=== PATIENT | female | born 1955 | race Caucasian/White ===

== ENCOUNTER → 2024-06-10 | Outpatient (CLI) | payer MEDICARE, BC, SELFPAY ==
--- NOTE | 2024-06-10 10:00 | XR_ITS ---
Examination: CT abdomen without intravenous contrast. Coronal 2-D reconstructions. Sagittal 2-D reconstructions. Date and time of exam:June 10, 2024 1005 hours INDICATIONS: Right-sided abdominal pain beginning several months ago CTDI: vol (mGy): 8.99 DLP: (mGycm): 263 Technique: Axial images of the abdomen have been obtained, 3 mm slice thickness, abdomen without intravenous contrast 2-D sagittal coronal reconstructions Low dose protocols were performed. One or more of the following dose reduction techniques were used; automated exposure control, adjustment of the mA and/or KV according to patient size, use of iterative reconstruction technique. Findings: No focal liver or splenic lesions No gallstones No pancreatic mass Parapelvic renal cysts No renal or ureteral calculi, no hydronephrosis No bowel obstruction 25 mm fat-containing umbilical hernia No visualized diverticulitis IMPRESSION: No focal liver or splenic lesions No gallstones Given the patient's presentation, consider hepatobiliary sonography follow-up 25 mm fat-containing umbilical hernia
== END | disposition home or self-care (01) ==
LOC: CCTX 09:52
PROVIDERS: PCP Family Medicine; Referring Provider Internal Medicine; Visit Provider Internal Medicine
DX: K42.9 Umbilical hernia without obstruction or gangrene (principal)
CPT/HCPCS: 74150

== ENCOUNTER → 2024-07-08 | Outpatient (CLI) | payer MEDICARE, BC, SELFPAY ==
--- NOTE | 2024-07-08 15:30 | XR_ITS ---
Examination: Abdomen sonogram, Limited Date and time of exam: July 08, 2024 1524 hours INDICATIONS: Right upper abdominal pain beginning one year ago Technique: Real-time earl scale transabdominal sonographic images of the upper abdomen obtained. Findings: Multiple gallstones Gallbladder wall 0.3 cm no edema Common bile duct 0.3 cm Pancreas obscured by bowel gas Liver 17.7 cm mild hepatomegaly fatty infiltration Normal hepatopedal portal venous flow Patent IVC IMPRESSION: Cholelithiasis, negative for cholecystitis Normal common bile duct Mild hepatomegaly fatty liver
== END | disposition home or self-care (01) ==
PROVIDERS: PCP Family Medicine; Referring Provider Specialist; Visit Provider Specialist
DX: K80.20 Calculus of gallbladder without cholecystitis without obstruction (principal); K76.0 Fatty (change of) liver, not elsewhere classified
CPT/HCPCS: 76705

== ENCOUNTER 2024-08-01 09:34 | Outpatient (RCR) | payer MEDICARE, BC, SELFPAY ==
--- NOTE | 2024-08-01 10:00 | XR_ITS ---
Examination: NOHEMI, hepatobiliary radioisotope scan Gallbladder ejection fraction study. Date and time of exam: August 01, 2024 0942 hrs. Indications: Upper abdominal pain beginning 2 weeks ago Technique: 5.7 mCi of 99M Hepatolite administered. Serial imaging then obtained from immediate through 60 minutes. 1.5 mcg selective catheter Kinevac administered for gallbladder ejection fraction study. Findings: Radioisotope activity within the liver is reasonably homogenous. Gallbladder, common bile duct small bowel activity noted Impression: Gallbladder activity, abnormal gallbladder ejection fraction 60%
== END 2024-08-06 23:59 | disposition home or self-care (01) ==
LOC: SNUC 09:34
PROVIDERS: PCP Family Medicine; Referring Provider Specialist; Visit Provider Specialist
DX: R93.2 Abnormal findings on diagnostic imaging of liver and biliary tract (principal)
CPT/HCPCS: 78227; A9537; J2805

== ENCOUNTER 2024-11-29 06:20 | Day surgery (SDC) | payer MEDICARE, BC, SELFPAY ==
--- NOTE | 2024-11-28 07:00 | EKG_ITS ---
[facility] Test Date: 2024-11-28 Pat Name: ERICKA GONZALES Department: Room: - Gender: Female Canine Deputy: RADHA : 1955 Requested By: Linus Hatfield Order Number: [id number] Reading MD: Linus Hatfield Measurements Intervals [place] Rate: 56 P: 31 OH: 175 QRS: 19 QRSD: 98 T: 56 QT: 403 QTc: 390 Interpretive Statements SINUS BRADYCARDIA Compared to ECG 08/13/2022 08:59:51 Sinus rhythm no longer present /store/S0/[id number]
[2024-11-28 07:31] VITALS: BMI 26.2
[2024-11-28 09:08] LABS: Basophils # (Auto) 0.1 Thou/mm3 (0.0-0.2); Basophils % (Auto) 1 % (0-2.5); Eosinophils # (Auto) 0.1 Thou/mm3 (0.0-0.5); Eosinophils % (Auto) 2 % (0-10); Hematocrit 40.7 % (36.0-46.0); Hemoglobin 13.8 g/dL (12.0-16.0); Immature Granulocytes Auto 0.02 Thou/mm3 (0.00-0.00); Lymphocytes # (Auto) 1.9 Thou/mm3 (1.0-4.8); Lymphocytes % (Auto) 29 % (10-50); Mean Corpuscular HGB Conc 33.9 g/dl (31.0-37.0); Mean Corpuscular Hemoglobin 30.2 pg (25.0-35.0); Mean Corpuscular Volume 89 fL (80-100); Monocytes # (Auto) 0.5 Thou/mm3 (0.0-0.8); Monocytes % (Auto) 8 % (0-12); Neutrophils # (Auto) 3.9 Thou/mm3 (1.8-7.7); Neutrophils % (Auto) 60 % (37-80); Nucleated Red Blood Cell # 0.00 Thou/mm3 (0.00-0.00); Nucleated Red Blood Cell % 0 /100 WBC (0); Platelet Count 194 Thou/mm3 (140-440); RDW Standard Deviation 41.8 fL (36.4-46.3); Red Blood Count 4.57 Miln/mm3 (4.00-5.20); White Blood Count 6.6 Thou/mm3 (3.6-11.0)
[2024-11-28 09:16] LABS: Alanine Aminotransferase 25 U/L (10-49); Albumin, Serum 4.5 gm/dL (3.4-4.8); Albumin/Globulin Ratio 1.7 (1.2-2.2); Alkaline Phosphatase 114 U/L (46-116); Anion Gap 8 (7-16); Aspartate Amino Transferase 30 U/L (0-34); BUN/Creatinine Ratio 20 Ratio (12-20); Bilirubin,Total 0.5 mg/dL (0.3-1.2); Blood Urea Nitrogen 14 mg/dL (9-23); Calcium 10.4 mg/dL (8.3-10.6); Calcium (Corrected) 10.4 mg/dL (8.5-10.1); Carbon Dioxide 29.9 mMol/L (20.0-31.0); Chloride 107 mMol/L (98-107); Creatinine (Component) 0.7 mg/dL (0.6-1.3); Estimated Creatinine Clearance 70.5 mL/min (>60); Globulin 2.6 gm/dL (2.3-3.5); Glucose 108 mg/dL (74-106); Osmolality,Calculated 290 (275-295); Potassium 4.4 mMol/L (3.4-5.1); Sodium 145 mMol/L (136-145); Total Protein 7.1 gm/dL (5.7-8.2); eGFR > 60 See Note
[2024-11-29] VITALS (7 sets, daily range): BP systolic 151–170; BP diastolic 67–79; PULSE 62–95; RESP 12–20; TEMP 36.3–37.1; O2SAT 96–99; BMI 26.7
[2024-11-29] MEDS: RINGERS LACTATED 1000 ML 1,000 ML 20 ML IV (06:50)
--- NOTE | 2024-11-29 09:33 | PD.SUROPNT ---
Date of Procedure 11/29/24 Pre Op Diagnosis Symptomatic cholelithiasis Post Op Diagnosis Cholelithiasis with cholecystitis Procedure Laparoscopic cholecystectomy Findings Moderately distended gallbladder with gallstones and chronic cholecystitis. Anterior surface of the liver was smooth without nodules or any lesions Procedure Description Patient was brought into the operating room in supine position. After administration of general endotracheal anesthesia abdomen was prepped and draped in standard surgical manner. A Veress needle was inserted through the umbilicus and pneumoperitoneum was obtained up to 15 mmHg. The Veress needle was then removed, a 5 mm infraumbilical incision was made and the 5mm trocar was inserted. Laparoscopic camera was placed. Under direct visualization a laparoscopic camera a 10 mm trocar was placed in subxiphoid and two 5 mm trocars placed in right upper quadrant. The anterior surface of the liver was smooth without nodules or any lesions. The gallbladder was identified and was noted to be moderately distended. It was retracted cephalad and laterally. Dissection started near the infundibulum of gallbladder where cystic duct and gallbladder junction clearly identified. The cystic duct was circumferentially dissected off the peritoneum and surrounding inflammatory tissue. The critical view of safety was clearly demonstrated. Cystic duct was then divided between 2 endoclips proximally and one distally. The cystic artery was similarly dissected and divided. The gallbladder was then from the liver bed using electrocautery. The gallbladder was then placed inside an Endo Catch and removed from the abdomen utilizing subxiphoid trocar site. The area was copiously and thoroughly washed and irrigated, all the fluid was suctioned and the suction fluid returned clear. Hemostasis achieved using electrocautery. Endoclips noted be in place and intact without any bleeding or any leakage. Hemostasis was adequate and satisfactory. The subxiphoid trocar sites fascial defect was closed with 0 Vicryl using Endo Closure device. Instruments and trocars removed, pneumoperitoneum was evacuated and the incisions closed with 4-0 Monocryl in subcuticular fashion. Instrument needle and sponge counts were all reported to be correct X2. Patient tolerated the procedure well, was extubated, breathing spontaneously and without difficulty and was transferred to postanesthesia care in stable condition. Anesthesia GETA and local Pathology / specimen Other (Gallbladder and contents) Estimated Blood Loss 10 Condition Stable Disposition PACU Surgeon Linus Hatfield MD Surgical Staff Operation Date: 07/08/25 08:45 Case Staff Anesthesiologist: Mele Martines career technical supervisor: Kate Donahue
--- NOTE | 2024-11-29 09:38 | SUR.PHASEI ---
0938: Pt. AAOx4, vitals stable, breathing unlabored, no complaint of pain or nausea, x4 dermabond sites to ABD CDI, no active bleed noted, report received from Andrea CHICAS and MD Martines.
[2024-11-29] MEDS: ONDANSETRON INJ 2 MG/ML INJ 2 ML 4 MG IVP (09:58)
[2024-11-29] MEDS: METOCLOPRAMIDE INJ 5 MG/ML VIAL 2 ML 10 MG IVP (10:30)
--- NOTE | 2024-11-29 10:45 | SUR.PHASEII ---
1045: Pt. AAOx4, vitals stable, breathing unlabored, no complaint of pain or nausea, x4 dermabond sites to ABD CDI, no active bleed noted. Pt. tolerated sips of water well, pt. ambulated to wheelchair with steady gait and no assist, no complications. Gave discharge instructions to the pt. and her ride, both verbalized understanding and had no further questions. Pt. left with all personal belongings.
== END 2024-11-29 10:45 | disposition home or self-care (01) ==
PROVIDERS: PCP Family Medicine; Referring Provider Surgery; Visit Provider Surgery
PROC: 0FT44ZZ Resection of Gallbladder, Percutaneous Endoscopic Approach (ICD-10-PCS; CPT 47562; principal; 2024-11-29 08:30)
DX: K80.10 Calculus of gallbladder with chronic cholecystitis without obstruction (principal); Z01.810 Encounter for preprocedural cardiovascular examination
CPT/HCPCS: 47562; 36415; 80053; 85025; 93005; A4217; A4649; J0131; J0694; J1100; J2371; J2405; J2704; J2765; J3010; J3490; J7120; J1805

== ENCOUNTER 2024-12-03 13:59 | Emergency (ER) | payer MEDICARE, BC, SELFPAY ==
[2024-12-03 14:12] VITALS: BP 142/84; PULSE 110; RESP 18; TEMP 37.5; O2SAT 96; BMI 25.9
--- NOTE | 2024-12-03 14:18 | XR_ITS ---
Examination: PA lateral chest 2 views Technique: Upright PA lateral chest 2 views Date and time: December 03, 20242024 hrs. Comparison 02/08/2024 Indications: Fever beginning last week. Findings: Mild pneumonia left base obscuring detail left hemidiaphragm Right lung clear Normal heart size Prominent osteopenia Impression: Mild pneumonia left base
--- NOTE | 2024-12-03 14:18 | PD.EDRME ---
Rapid Medical Screening Exam RME Arrival date/time: 12/03/24 13:59 69-year-old female presents to the emergency department today stating that she had cholecystectomy on Thursday patient reports fever and generalized fatigue Chief Complaint: Fever Time Seen by Provider: 12/03/24 14:15 Vital signs: Vital Signs Temperature 99 F 12/03/24 14:12 Pulse Rate 110 H 12/03/24 14:12 Respiratory Rate 18 12/03/24 14:12 Blood Pressure 142/84 H 12/03/24 14:12 Pulse Oximetry (%) 96 12/03/24 14:12 Oxygen Delivery Method Room Air 12/03/24 14:12
--- NOTE | 2024-12-03 14:35 | EKG_ITS ---
[facility] Test Date: 2024-12-03 Pat Name: ERICKA GONZALES Department: Room: - Gender: Female Podiatric Assistant: : 1955 Requested By: Johny Nichols Order Number: [id number] Reading MD: Johny Nichols Measurements Intervals [place] Rate: 93 P: 34 PA: 167 QRS: 4 QRSD: 98 T: 45 QT: 334 QTc: 415 Interpretive Statements SINUS RHYTHM INFERIOR MYOCARDIAL INFARCTION , PROBABLY OLD [40+ ms Q WAVE AND/OR ST/T ABNORMALITY IN II/aVF] PROBABLE ANTEROLATERAL MYOCARDIAL INFARCTION , PROBABLY OLD [35 ms Q WAVE IN I/aVL/V3-V6] Compared to ECG 11/28/2024 08:20:29 Myocardial infarct finding now present Sinus bradycardia no longer present /store/S0/[id number]/[id number]
--- NOTE | 2024-12-03 14:44 | PD.EDRECHK ---
ED Recheck Abnl Lab Rx-RME/HPI General Chief Complaint: Fever Stated Complaint: FEVER / CHILLS POST DYLLAN X Time Seen by Provider: 12/03/24 14:15 Arrival date/time: 12/03/24 13:59 Limitations: no limitations RME / HPI RME / HPI narrative: 12/03/24 13:59 69-year-old female presents to the emergency department today stating that she had cholecystectomy on Thursday patient reports fever and generalized fatigue DR. GUILLERMO MAIN ED EVALUATION: 69 year old female accompanied by his daughter with past medical history significant for recent cholecystectomy by Dr. Hatfield presents to the Emergency Department with complaints of low grade fever of 99 F, chills, and generalized weakness. She also reports a small erythema area under the right breast. Denies any cholecystectomy complications. No other symptoms reported at this time. Related Data Home Medications ?Medication ?Instructions ?Recorded ?Confirmed hydrochlorothiazide 25 mg tablet 25 mg PO QDAY 07/02/23 11/28/24 losartan 50 mg tablet 50 mg PO QDAY 07/02/23 11/28/24 metoprolol succinate 25 mg 25 mg PO QDAY 07/02/23 11/28/24 tablet,extended release 24 hr calcium citrate 250 mg PO QDAY 11/28/24 11/28/24 multivitamin-ferrous 1 tab PO QAM 11/28/24 11/28/24 fumarate-folic acid 18 mg-400 mcg tablet (Centrum Women) Previous Rx's ?Medication ?Instructions ?Recorded docusate sodium 100 mg capsule 100 mg PO BID #30 caps 11/29/24 (Colace) hydrocodone 5 mg-acetaminophen 325 1 tab PO Q6H PRN pain (scale score 11/29/24 mg tablet 7-10) #10 tabs ibuprofen 600 mg tablet 600 mg PO Q8H PRN pain (scale 11/29/24 score 4-6) #15 tabs Allergies Allergy/AdvReac Type Severity Reaction Status Date / Time Penicillins Allergy Unknown rash Verified 12/03/24 14:03 Review of Systems Review of Systems Systems Reviewed: All systems reviewed, normal except as documented Past Medical History Past Medical History CARDIAC: Positive Cardiac Disorders, Hypertension and Varicose Veins RESPIRATORY: Positive Bronchitis GASTROINTESTINAL: Positive Gastrointestinal Disorders and Gall Bladder Disease REPRODUCTIVE: Positive Previous Pregnancies (2) MUSCULOSKELETAL: Positive Musculoskeletal Disorders and Fractures (left great toe fx) OTHER HISTORY: Positive Hospitalization (surgery, Hiatal hernia), Chicken Pox and Mumps Family History FAMILY HISTORY: Positive Family Cardiac Disorders and Family Surgery Social History SMOKING STATUS: Never smoker SUBSTANCE USE: does not use ALCOHOL: Never ED Exam General Limitations: Present no limitations General appearance: Present alert and in no apparent distress Head Head exam: Present atraumatic, normocephalic and normal inspection Eye Eye exam: Present normal appearance, PERRL and EOMI ENT ENT exam: Present normal exam, normal oropharynx and mucous membranes moist Neck Neck exam: Present normal inspection, full ROM and trachea midline Chest Chest inspection: Present normal inspection and symmetric chest wall rise Respiratory Respiratory exam: Present normal lung sounds bilaterally Cardiovascular Cardiovascular exam: Present regular rate, normal rhythm and normal heart sounds Abdominal Exam Abdominal exam: Present soft, normal bowel sounds and scar (surgical scar from recent cholecystectomy, glue still in place and no signs of infection); Absent tenderness Extremities Exam Extremities exam: Present normal inspection and full ROM Back Exam Back exam: Present normal inspection and full ROM Neurological Exam Neurological exam: Present alert, oriented X3 and CN II-XII intact Psychiatric Psychiatric exam: Present normal affect and normal mood Skin Skin exam: Present warm, dry, intact and erythema (2x6 cm area of erythema that is slightly raised but no fluid palpated.) Course Quality Measures none Orders Category Date Time Status Bedside COVID-19 Antigen Test NOW Care 12/03/24 14:18 Active Bedside Influenza A&B Antigen Test NOW Care 12/03/24 14:18 Completed Quality Improvement Coordinator NOW Care 12/03/24 14:35 Active Continuous Pulse Oximetry NOW Care 12/03/24 14:35 Completed EKG (ED ONLY) *Do not use* NOW Care 12/03/24 14:35 Completed Insert IV NOW Care 12/03/24 14:35 Active EKG (ED Only) Stat Exams 12/03/24 14:35 Draft US gall bladder Stat Exams 12/03/24 14:59 Completed XR chest 2V Stat Exams 12/03/24 14:18 Completed Blood Culture (Lab) Stat Lab 12/03/24 14:59 Received CBC Stat Lab 12/03/24 14:55 Completed Comprehensive Metabolic Panel Stat Lab 12/03/24 14:55 Completed Lactate (Lactic Acid) Stat Lab 12/03/24 14:55 Completed Lipase Stat Lab 12/03/24 14:55 Completed Procalcitonin Stat Lab 12/03/24 14:55 Completed UA, C/S IF [Urinalysis, C/S if Indicated] Stat Lab 12/03/24 14:18 Ordered Acetaminophen Ivpb [Ofirmev Inj] Med 12/03/24 14:59 Discontinued 1,000 mg in 100 ml IV X1 Levofloxacin/D5w 500 mg Ivpb [Levaquin Ivpb] Med 12/03/24 15:40 Discontinued 500 mg in 100 ml IV X1 Sodium Chloride 0.9% 1000 ml [Ns] 1,000 ml Med 12/03/24 14:35 Discontinued IV 999 mls/hr Triamcinolone Acet Cr 0.025% [Kenalog Cr 0.025%] Med 12/03/24 16:45 Discontinued See Dose Instructions TOP X1 ONE Vital Signs Vital signs: Vital Signs Temperature 99.5 F 12/03/24 14:12 Pulse Rate 110 H 12/03/24 14:12 Respiratory Rate 18 12/03/24 14:12 Blood Pressure 142/84 H 12/03/24 14:12 Pulse Oximetry (%) 96 12/03/24 14:12 Oxygen Delivery Method Room Air 12/03/24 14:12 Recheck / Abnormal Lab / Rx MDM Narrative MDM Narrative:: I, Mery Montano, am scribing for and in the presence of Dr. Guillermo. WBC is normal. Gallbladder US shows absent gallbladder, no fluid collection in the gallbladder fossa. She has a low grade fever. Plan for antibiotics and discharge. Patient data External records reviewed:: [facility] previous records Clinical information provided by:: patient and family Social determinants that could affect healthcare access:: none Patient has the following chronic illnesses:: recent cholecystectomy by Dr. Hatfield How is presenting disease/condition affected by chronic disease/condition?: exacerbated by Evaluation data The following diagnostics were reviewed and interpreted by me:: lab results, radiology exam(s) and EKG tracing(s) Lab and/or radiology exams considered but not ordered:: none Interpretation Summary: My interpretation: EKG performed at 1454 hours, sinus rhythm, rate 93, no acute changes, no STEMI Procedure(s): XR chest 2V Accession Number(s): [id number] cc: Adrián (KYM),Loyd MEJÍA; Owen Valentin MD; Jose Alfredo Romano MD~ Examination: PA lateral chest 2 views Technique: Upright PA lateral chest 2 views Date and time: December 03, 20242024 hrs. Comparison 02/08/2024 Indications: Fever beginning last week. Findings: Mild pneumonia left base obscuring detail left hemidiaphragm Right lung clear Normal heart size Prominent osteopenia Impression: Mild pneumonia left base Dictated By: Owen Valentin MD Procedure(s): US gall bladder Accession Number(s): [id number] cc: Johny Guillermo MD; Owen Valentin MD; Jose Alfredo Romano MD~ Examination: Abdomen sonogram, Limited Date and time of exam: December 03, 2024, 1522 hrs. Indications: Status post cholecystectomy November 29, 2024 followed by fever and chills today Technique: Real-time earl scale transabdominal sonographic images of the upper abdomen obtained. Findings: Absent gallbladder Normal common bile duct Pancreatic head 2.9 cm Hepatomegaly 18.7 cm fatty infiltration Normal hepatopedal portal venous flow Patent IVC Impression: Absent gallbladder, no fluid collection in the gallbladder fossa Normal common bile duct Dictated By: Owen Valentin MD Medications / Prescriptions Medications or Prescriptions considered but not ordered:: none Medication administrations:: Medication Administration History Discontinued Medications Sodium Chloride (Ns) 1,000 mls @ 999 mls/hr IV .Q1H1M ONE Stop: 12/03/24 15:35 Last Admin: 12/03/24 16:43 Dose: 999 mls/hr Documented By: DESIREE Acetaminophen (Ofirmev Inj) 1,000 mg in 100 mls @ 250 mls/hr IV X1 ONE Stop: 12/03/24 15:22 Last Infusion: 12/03/24 17:15 Dose: Infused Documented By: Admin: 12/03/24 16:44 Dose: 250 mls/hr Documented By: DESIREE Levofloxacin/Dextrose (Levaquin Ivpb) 500 mg in 100 mls @ 100 mls/hr IV X1 ONE Stop: 12/03/24 16:39 Last Admin: 12/03/24 17:19 Dose: 100 mls/hr Documented By: DAVID Triamcinolone Acetonide (Triamcinolone Acet Cr 0.025% 80 Gm Tube) 0 gm TOP X1 ONE Stop: 12/03/24 16:46 Last Admin: 12/03/24 16:48 Dose: 80 gm Documented By: DESIREE see above Consultations Consultation(s) initiated? (list below): No Diagnosis Recheck Differential Diagnosis: other (cellulitis, dermatitis, wound check) Most likely diagnosis given after review of the tests above:: Status post cholecystectomy Low grade fever Generalized fatigue Admission Indicated Admission indicated?: not indicated Admission Request Was there a request for admission?: No Disposition Plan Disposition Plan: Discharge Discharge Attestation Discharge Attestation: The patient and all family members were given an opportunity to ask questions and understood the discharge instructions. Discharge instructions specifically effects, indications for sooner follow up or return to the emergency department, and the expected course of current diagnosis. Patient condition: Stable Discharge Plan Plan Patient Disposition: HOME (Self Care) Patient condition on transfer: Stable Prescriptions/Referrals Prescriptions/Med Rec: No Action losartan 50 mg tablet 50 mg PO QDAY hydrochlorothiazide 25 mg tablet 25 mg PO QDAY metoprolol succinate 25 mg tablet extended release 24 hr 25 mg PO QDAY Centrum Women 18-400 mg-mcg tablet 1 tab PO QAM calcium citrate 250 mg calcium tablet 250 mg PO QDAY docusate sodium [Colace] 100 mg capsule 100 mg PO BID Qty: 30 0RF ibuprofen 600 mg tablet 600 mg PO Q8H PRN (Reason: pain (scale score 4-6)) Qty: 15 0RF hydrocodone-acetaminophen 5-325 mg tablet 1 tab PO Q6H MDD 4 PRN (Reason: pain (scale score 7-10)) Qty: 10 0RF Referrals: Jose Alfredo Romano MD [Primary Care Provider] - In 1 week Problem List Clinical Impression: Status post cholecystectomy, Low grade fever, Fatigue Patient/Caregiver Discharge Instructions Additional Instructions: Please follow-up with your primary care physician within 2-[address] Hatfield on Thursday. Return to the Emergency Department as needed. Print Language: [place] Stand Alone Forms: Hayley Award Info., Patient Portal Info Letter
--- NOTE | 2024-12-03 14:59 | XR_ITS ---
Examination: Abdomen sonogram, Limited Date and time of exam: December 03, 2024, 1522 hrs. Indications: Status post cholecystectomy November 29, 2024 followed by fever and chills today Technique: Real-time earl scale transabdominal sonographic images of the upper abdomen obtained. Findings: Absent gallbladder Normal common bile duct Pancreatic head 2.9 cm Hepatomegaly 18.7 cm fatty infiltration Normal hepatopedal portal venous flow Patent IVC Impression: Absent gallbladder, no fluid collection in the gallbladder fossa Normal common bile duct
[2024-12-03 15:03] LABS: Lactate (Lactic Acid) 1.1 mMol/L (0.4-2.0)
[2024-12-03 15:09] LABS: Basophils # (Auto) 0.1 Thou/mm3 (0.0-0.2); Basophils % (Auto) 0 % (0-2.5); Eosinophils # (Auto) 0.1 Thou/mm3 (0.0-0.5); Eosinophils % (Auto) 0 % (0-10); Hematocrit 37.8 % (36.0-46.0); Hemoglobin 13.3 g/dL (12.0-16.0); Immature Granulocytes Auto 0.09 Thou/mm3 (0.00-0.00); Lymphocytes # (Auto) 1.0 Thou/mm3 (1.0-4.8); Lymphocytes % (Auto) 5 % (10-50); Mean Corpuscular HGB Conc 35.2 g/dl (31.0-37.0); Mean Corpuscular Hemoglobin 30.2 pg (25.0-35.0); Mean Corpuscular Volume 86 fL (80-100); Monocytes # (Auto) 0.9 Thou/mm3 (0.0-0.8); Monocytes % (Auto) 5 % (0-12); Neutrophils # (Auto) 16.5 Thou/mm3 (1.8-7.7); Neutrophils % (Auto) 89 % (37-80); Nucleated Red Blood Cell # 0.00 Thou/mm3 (0.00-0.00); Nucleated Red Blood Cell % 0 /100 WBC (0); Platelet Count 152 Thou/mm3 (140-440); RDW Standard Deviation 39.0 fL (36.4-46.3); Red Blood Count 4.40 Miln/mm3 (4.00-5.20); White Blood Count 18.5 Thou/mm3 (3.6-11.0)
[2024-12-03 15:12] VITALS: PULSE 81
--- NOTE | 2024-12-03 15:25 | PC.NURSE ---
PATIENT TAKEN TO ULTRASOUND AT THIS TIME.
[2024-12-03 15:33] LABS: Alanine Aminotransferase 55 U/L (10-49); Albumin, Serum 4.0 gm/dL (3.4-4.8); Albumin/Globulin Ratio 1.7 (1.2-2.2); Alkaline Phosphatase 116 U/L (46-116); Anion Gap 9 (7-16); Aspartate Amino Transferase 58 U/L (0-34); BUN/Creatinine Ratio 13 Ratio (12-20); Bilirubin,Total 1.0 mg/dL (0.3-1.2); Blood Urea Nitrogen 8 mg/dL (9-23); Calcium 9.0 mg/dL (8.3-10.6); Calcium (Corrected) 9.0 mg/dL (8.5-10.1); Carbon Dioxide 27.0 mMol/L (20.0-31.0); Chloride 105 mMol/L (98-107); Creatinine (Component) 0.6 mg/dL (0.6-1.3); Estimated Creatinine Clearance 81.8 mL/min (>60); Globulin 2.4 gm/dL (2.3-3.5); Glucose 115 mg/dL (74-106); Lipase 18 U/L (12-53); Osmolality,Calculated 280 (275-295); Potassium 3.6 mMol/L (3.4-5.1); Procalcitonin 0.10 ng/ml (0.0-0.49); Sodium 141 mMol/L (136-145); Total Protein 6.4 gm/dL (5.7-8.2); eGFR > 60 See Note
[2024-12-03] MEDS: SODIUM CHLORIDE 0.9% 1000 ML 1,000 ML 999 ML IV (16:43)
[2024-12-03] MEDS: ACETAMINOPHEN IVPB 1,000 MG/100 ML VIAL 250 MG IV (16:44)
[2024-12-03] MEDS: TRIAMCINOLONE ACET 0.025% TOP (16:48)
[2024-12-03] MEDS: LEVOFLOXACIN/D5W 500 MG IVPB 500 MG/100 ML BAG 100 MG IV (17:19)
[2024-12-03 17:45] VITALS: BP 134/69; PULSE 67; RESP 18; TEMP 37.1; O2SAT 98
== END 2024-12-03 18:38 | disposition home or self-care (01) ==
PROVIDERS: Nurse Practitioner Primary Care; Emergency Provider Family Medicine; PCP Family Medicine
DX: J18.9 Pneumonia, unspecified organism (principal); Z90.49 Acquired absence of other specified parts of digestive tract; R94.31 Abnormal electrocardiogram [ECG] [EKG]; I10 Essential (primary) hypertension
CPT/HCPCS: 36415; 71046; 76705; 80053; 81001; 83605; 83690; 84145; 85025; 87040; 87400; 87811; 93005; 96361; 96365; 96366; 99284; J0131; J1956; J7030

== ENCOUNTER → 2025-02-08 | Outpatient (CLI) | payer MEDICARE, BC, SELFPAY ==
--- NOTE | 2025-02-08 12:30 | XR_ITS ---
Examination: Bone densitometry Date and time of exam:February 08, 2025 1250 hours INDICATIONS: Menopause age 43 calcium and vitamin D 20 years, personal history osteoporosis Technique: Lumbar spine and hip total bone mineralization values of an calculated. Peak reference and age match control results have been displayed. Findings: Lumbar spine total bone mineralization is0.846 gm/cm2. This is 1.8 standard deviations below peak reference. This is 0.4 standard deviations above age-matched controls. Hip total bone mineralization is 0.829 gm/cm2 This is 0.9 standard deviations below peak reference. This is 0.7 standard deviations above age-matched controls Impression: There is osteopenia based on lumbar spine measurements. There is osteopenia based on hip measurements Lumbar mineralization is decreased 0.2% compared with 02/06/2023 Hip mineralization is decreased 3.7% compared with 02/06/2023
--- NOTE | 2025-02-08 13:00 | XR_ITS ---
Examination: Screening digital mammography, bilateral Computer aided detection 3-D breast Tomosynthesis, bilateral Date and time of exam: February 08, 2025 1250 hours, compared to mammograms dating to December 02, 2011 Indication: Screening Technique: Nonmagnified MLO, CC views of the breasts to been obtained, reconstructed from 3-D Tomosynthesis images. R2 computer aided detection program utilized for evaluation of suspicious masses and/or abnormal calcifications. 3-D Tomosynthesis images obtained. Findings: The breasts are heterogeneously dense, which may obscure small masses 5 mm nodule partially circumscribed inner outer right breast Benign calcifications Impression: BI-RADS Category 0: Incomplete: Need additional imaging evaluation 5 mm partially circumscribed nodule inner upper right breast, recommend follow-up spot tomographic views of this nodule as well as right breast sonography to complete the workup
== END | disposition home or self-care (01) ==
LOC: CDIM 12:06
PROVIDERS: PCP Internal Medicine; Referring Provider Internal Medicine; Visit Provider Internal Medicine
DX: Z12.31 Encounter for screening mammogram for malignant neoplasm of breast (principal); N63.12 Unspecified lump in the right breast, upper inner quadrant; M85.89 Other specified disorders of bone density and structure, multiple sites
CPT/HCPCS: 77063; 77067; 77080

== ENCOUNTER → 2025-02-21 | Outpatient (CLI) | payer MEDICARE, BC, SELFPAY ==
--- NOTE | 2025-02-21 | XR_ITS ---
Examination: Breast ultrasound, unilateral, right complete Date and time of exam: February 21, 2025, 0952 hours INDICATIONS: Mammogram 02/08/2025 5 mm nodule inner upper right breast Technique: Real-time earl scale ultrasonographic imaging performed right breast including all 4 quadrants as well as nipple retroareolar and axillary region. Findings: 1:00 nodule circumscribed 6 x 5 mm IMPRESSION: BI-RADS Category 3: Probably benign findings. Recommend 1 additional 6 month right breast sonogram follow-up to document stability of nodule described above
--- NOTE | 2025-02-21 09:53 | XR_ITS ---
Examination: Diagnostic digital mammography, unilateral, right Computer aided detection 3-D breast Tomosynthesis, unilateral Date and time of exam: February 21, 2025 1043 hours INDICATIONS: Mammogram February 08, 2025 5 mm nodule inner upper right breast Technique: Nonmagnified MLO, CC views of the right breast have been obtained, reconstructed from 3-D Tomosynthesis images. R2 computer aided detection program utilized for evaluation of suspicious masses and/or abnormal calcifications. 3-D Tomosynthesis images obtained. Findings: The breast is heterogeneously dense, which may obscure small masses 5 mm circumscribed nodule 1:00 position right breast Impression: BI-RADS category 3: Probably benign findings Recommend 1 additional 6 month right mammogram follow-up to document stability of 1:00 nodule described above
== END | disposition home or self-care (01) ==
PROVIDERS: PCP Internal Medicine; Referring Provider Internal Medicine; Visit Provider Internal Medicine
DX: R92.331 Mammographic heterogeneous density, right breast (principal); N63.12 Unspecified lump in the right breast, upper inner quadrant
CPT/HCPCS: 76641; 77061; 77065; G0279